=== PATIENT | male | born 1995 | race Two or more races ===

== ENCOUNTER → 2022-03-02 | Emergency (ER) | payer OTHER ==
[~2022-03-02] VITALS: Ht 185.4 cm; Wt 88.5 kg
== END | disposition home or self-care (01) ==
LOC: ER 22:46
DX: M24.411 Recurrent dislocation, right shoulder (principal)

== ENCOUNTER 2023-12-10 20:16 | Emergency (ER) | payer OTHER ==
[~2023-12-10] VITALS: Ht 185.4 cm; Wt 90.7 kg
[2023-12-10] MEDS ORDERED: MIDAZOLAM HCL/PF 5 MG/ML VIAL IV ONE (21:00)
[2023-12-10] MEDS ORDERED: FLUMAZENIL 0.5 MG/5 ML ML IV ONE (21:00)
[2023-12-10] MEDS ORDERED: 0.9 % SODIUM CHLORIDE 500 ML IV SCH (21:00)
== END 2023-12-10 23:45 | disposition home or self-care (01) ==
LOC: ER 20:18
DX: S43.084A Other dislocation of right shoulder joint, initial encounter (principal); Y93.66 Activity, soccer; Y92.89 Other specified places as the place of occurrence of the external cause
CPT/HCPCS: 23650; 73020; 73030; 96365; 96366; 99283; J3490; J7030